=== PATIENT | male | born 1995 | race Caucasian/White ===

== ENCOUNTER 2016-10-03 18:40 | Emergency (ER) | payer BC ==
[2016-10-03 19:01] VITALS: BP 129/77
[2016-10-03 21:11] LABS: ACETAMINOPHEN 0 ug/mL (10-30)
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
[2016-10-03] MEDS ORDERED: Potassium Chloride 20 MEQ Tab.ER PO ONE (22:38)
[2016-10-04] MEDS ORDERED: Potassium Chloride 20 MEQ Tab.ER PO ONE (03:36)
== END 2016-10-04 08:30 ==
LOC: JD.ED 18:40
DX: R45.851 Suicidal ideations (principal); E87.6 Hypokalemia; F17.210 Nicotine dependence, cigarettes, uncomplicated
CPT/HCPCS: 36415; 80053; 80306; 84132; 84443; 85025; 93005; 99285; A9270; G0480

== ENCOUNTER 2016-10-13 20:00 | Emergency (ER) | payer BC ==
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
[2016-10-13 20:16] VITALS: BP 138/84
[2016-10-13] MEDS ORDERED: Ondansetron 4 MG/2 ML SDV IVPUSH ONE (20:24)
[2016-10-13] MEDS ORDERED: Lactated Ringers 1,000 ML IV SCH (20:30)
[2016-10-13] MEDS ORDERED: Iopamidol 612 MG/ML 150 ML Bottle IVPUSH ONE (20:44)
[2016-10-13] MEDS ORDERED: Sodium Chloride 0.9% 10 ML Syringe FLUSH ONE (20:44)
--- NOTE | 2016-10-13 21:16 | CT ---
Head CT Technique: Multiple axial sections through the brain were obtained. Intravenous contrast was utilized. Comparison: Previous head CT study of 11/03/14. Findings: Ventricles along with basal cisterns and sulci over the convexities appear within normal limits for the patient's age. No abnormal parenchymal densities are seen. No evidence of intracranial hemorrhage. No midline shift or mass effect is seen. Minimal area of mucosal thickening is seen within the left maxillary sinus which is incidental. No acute calvarial abnormality is appreciated. Impression: 1. Minimal sinus finding which is felt to be incidental. 2. No acute intracranial abnormality is identified on noncontrast head CT study. No significant change is seen from prior head CT exam. Diagnostic code #2
--- NOTE | 2016-10-13 21:20 | CT ---
CT cervical spine Technique: Multiple axial sections were obtained from above C1 inferiorly to the bottom of T1. Reconstructed sagittal and coronal images were reviewed. Comparison: Previous CT cervical spine exam of 03/13/16. Findings: Vertebral body heights and disc spaces are preserved. Minimal bony density is seen off the anterior and superior endplate of C6 which is stable from prior exam and is therefore incidental. Vertebral bodies and posterior arches are intact with no fracture being seen. No bony central bony neural foraminal stenosis is seen. Posterior skull base is intact. No abnormal subluxation is seen on the reconstructed sagittal images. Impression: 1. Incidental finding. Nothing acute is seen on CT study of the cervical spine. No significant change is seen from prior CT cervical spine exam. Diagnostic code #2
--- NOTE | 2016-10-13 21:26 | CT ---
CT chest Technique: Multiple axial sections were obtained through the chest. Intravenous contrast was utilized. Comparison: No previous previous noncontrast chest CT of 03/13/16. Findings: Mediastinum and hilar regions show no adenopathy or mass. Opacified great vessels are within normal limits. No pericardial thickening is seen. Lungs are clear. No pneumothorax, pleural effusion or abnormal parenchymal densities are seen. Bone window settings show no discrete rib fracture. Impression: 1. No abnormality identified on CT study of the chest. Diagnostic code #1 CT abdomen and pelvis Technique: Multiple axial sections were obtained from above the dome of the diaphragm inferiorly through the pubic symphysis. Intravenous contrast was utilized. No oral contrast was utilized. Comparison: No previous abdominal or pelvic CT exam is available. Findings: Liver shows no focal parenchymal abnormality. Spleen appears within normal limits. Adrenal glands show no nodule. Pancreas is within normal limits. Kidneys show symmetric contrast enhancement without hydronephrosis or mass. Aorta shows no aneurysmal dilatation. No retroperitoneal adenopathy or mesenteric abnormalities are seen. No pelvic mass or adenopathy is seen. Delayed images show contrast within the distal left ureter and bladder. Incidental extrarenal pelvis noted on the right side. Bone window settings were reviewed which show no discrete hip or pelvis abnormality. Impression: 1. No abnormality is identified on CT study of the abdomen and pelvis. Diagnostic code #1
--- NOTE | 2016-10-13 21:27 | CT ---
CT lumbar spine Technique: Multiple axial sections were obtained to the lumbar spine. Reconstructed coronal and sagittal images were reviewed. Findings: Vertebral body heights and disc spaces are maintained. No fracture is seen within the lumbar spine. No bony central or bony neural foraminal stenosis is seen. No traumatic disc herniation is seen. Mild disc space narrowing is incidentally noted at L5-S1 which is felt to be physiologic. No abnormal subluxation is seen on the reconstructed sagittal images. Impression: 1. No abnormality is identified on CT study of the lumbar spine. Diagnostic code #1
--- NOTE | 2016-10-13 21:29 | CT ---
CT thoracic spine Technique: Multiple axial sections through the thoracic spine were obtained. Reconstructed sagittal images were reviewed. Findings: Slight scoliosis is seen. Vertebral body heights and disc spaces are maintained. No fracture is identified. No bony central or bony neural foraminal stenosis is seen. No gross disc herniation is seen. No paravertebral soft tissue swelling is identified. Impression: 1. Minimal scoliosis. 2. Nothing acute is appreciated on CT study of the thoracic spine. Diagnostic code #2
[2016-10-13] MEDS ORDERED: Potassium Chloride 20 MEQ Tab.ER PO ONE (23:09)
== END 2016-10-13 23:50 | disposition home or self-care (01) ==
LOC: JD.ED 20:00
DX: S09.90XA Unspecified injury of head, initial encounter (principal); T14.8 Other injury of unspecified body region; F17.210 Nicotine dependence, cigarettes, uncomplicated; E87.6 Hypokalemia; V86.59XA Driver of other special all-terrain or other off-road motor vehicle injured in nontraffic accident, initial encounter
CPT/HCPCS: 36415; 70450; 71260; 72125; 72128; 72131; 74177; 80053; 80306; 81001; 83605; 83690; 85025; 86850; 86900; 86901; 93005; 96361; 96374; 99285; A9270; G0480; J2405; J7050; J7120; P9612; Q9967; 99284

== ENCOUNTER 2018-11-28 20:04 | Emergency (ER) | payer SELFPAY ==
[2018-11-28 20:14] VITALS: BP 137/92; PULSE 89
--- NOTE | 2018-11-28 22:17 | EDM.PDOC ---
ED HPI GENERAL MEDICAL PROBLEM - General Chief Complaint: ENT Problem Stated Complaint: SORES IN MOUTH Time Seen by Provider: 11/28/18 21:50 Source of Information: Reports: Patient History Limitations: Reports: No Limitations - History of Present Illness INITIAL COMMENTS - FREE TEXT/NARRATIVE: 23-year-old male presents for evaluation and treatment of mouth sores. Reports sores for the last few days. Have significantly worsened and he is unable to eat due to the pain. Reports pain all along the right-sided of the buccal mucosa. Reports his had something like this in the past but never anything this severe. Denies any fevers, chills, nausea or vomiting. Oral/Mouth Pain Score (Numeric/FACES): 7 - Related Data Allergies Allergy/AdvReac Type Severity Reaction Status Date / Time No Known Allergies Allergy Verified 10/13/16 20:12 Home Meds: Home Meds predniSONE [Prednisone] 20 mg PO BID #10 tablet 11/28/18 [Rx] Past Medical History - Past Health History Medical/Surgical History: Denies Medical/Surgical History HEENT History: Reports: None Cardiovascular History: Reports: None Respiratory History: Reports: None Gastrointestinal History: Reports: None Genitourinary History: Reports: None Musculoskeletal History: Reports: None Neurological History: Reports: Concussion Psychiatric History: Reports: ADHD, Addiction Endocrine/Metabolic History: Reports: None Hematologic History: Reports: None Immunologic History: Reports: None Oncologic (Cancer) History: Reports: None Dermatologic History: Reports: None - Infectious Disease History Infectious Disease History: Reports: None - Past Surgical History Head Surgeries/Procedures: Reports: None Social & Family History - Tobacco Use Smoking Status *Q: Current Every Day Smoker Years of Tobacco use: 9 Packs/Tins Daily: 0.5 - Caffeine Use Caffeine Use: Reports: Soda - Recreational Drug Use Recreational Drug Use: Yes Recreational Drug Type: Reports: Marijuana/Hashish - Living Situation & Occupation Living situation: Reports: Single, Other (Homeless) 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) ED ROS ENT - Review of Systems Review Of Systems: See Below Constitutional: Denies: Fever, Chills HEENT: Reports: Other (mouth sores) GI/Abdominal: Denies: Nausea, Vomiting ED EXAM, ENT - Physical Exam Exam: See Below Exam Limited By: No Limitations General Appearance: Alert, WD/WN, No Apparent Distress Ears: Normal External Exam, Normal Canal, Hearing Grossly Normal, Normal TMs Nose: Normal Inspection Mouth/Throat: Other (aphthous ulcers along the right buccal mucosa, large ulcer o the right lower lip and multiple smaller ulcers to the tongue) Respiratory/Chest: No Respiratory Distress, Lungs Clear, Normal Breath Sounds Cardiovascular: Normal Peripheral Pulses, Regular Rate, Rhythm, No Murmur Neurological: Alert, Oriented, Normal Cognition Psychiatric: Normal Affect, Normal Mood Skin: Warm, Dry, Normal Color Course - Vital Signs Last Recorded V/S: Last Vital Signs Temp 99.2 F 11/28/18 20:11 Pulse 89 11/28/18 20:11 Resp 16 11/28/18 20:11 BP 137/92 H 11/28/18 20:11 Pulse Ox 97 11/28/18 20:11 - Re-Assessments/Exams Free Text/Narrative Re-Assessment/Exam: 11/28/18 22:05 Will prescribe magic mouthwash for the ulcers and some prednisone. Discharge instructions as documented. Departure - Departure Time of Disposition: 22:14 Disposition: Home, Self-Care 01 Condition: Fair Clinical Impression: Aphthous stomatitis - Discharge Information *PRESCRIPTION DRUG MONITORING PROGRAM REVIEWED*: No *COPY OF PRESCRIPTION DRUG MONITORING REPORT IN PATIENT JOSÉ: No Prescriptions: predniSONE [Prednisone] 20 mg PO BID #10 tablet Instructions: Canker Sores Referrals: PCP,None [Primary Care Provider] - Forms: ED Department Discharge Additional Instructions: Follow-up with PCP in 2 weeks if not better. Prednisone 1 tab PO bid x 5 days, magic mouthwash 12 tsp swish and spit every 6 hours prn pain. OTC tylenol or motrin as needed for pain. Please return to the ER should your symptoms change or worsen.
== END 2018-11-28 22:20 | disposition home or self-care (01) ==
LOC: JD.ED 20:04
DX: K12.0 Recurrent oral aphthae (principal); F17.210 Nicotine dependence, cigarettes, uncomplicated
CPT/HCPCS: 99282

== ENCOUNTER 2020-12-15 14:50 | Emergency (ER) | payer SELFPAY ==
[2020-12-15 15:18] VITALS: BP 138/85; PULSE 109
--- NOTE | 2020-12-15 17:12 | EDM.PDOC ---
ED HPI GENERAL MEDICAL PROBLEM - General Chief Complaint: Respiratory Problem Stated Complaint: COVID+ Time Seen by Provider: 12/15/20 15:15 Source of Information: Reports: Patient, RN Notes Reviewed History Limitations: Reports: No Limitations - History of Present Illness INITIAL COMMENTS - FREE TEXT/NARRATIVE: Patient is a 25-year-old male presenting to the emergency department with complaints of a 2-day history of "sweating "and body aches. Reports mild cough but denies any shortness of breath.. Denies any nausea, vomiting, or diarrhea. He has not taken any [id number] medications for treatment of his symptoms. Patient did not receive the Covid vaccination. His girlfriend tested positive for Covid yesterday. Denies any chronic underlying medical conditions. Generalized Pain Score (Numeric/FACES): 6 - Related Data Allergies Allergy/AdvReac Type Severity Reaction Status Date / Time No Known Allergies Allergy Verified 12/15/20 15:17 Home Meds: Home Meds . [No Known Home Meds] 12/15/20 [History] Past Medical History - Past Health History Medical/Surgical History: Denies Medical/Surgical History HEENT History: Reports: None Cardiovascular History: Reports: None Respiratory History: Reports: None Gastrointestinal History: Reports: None Genitourinary History: Reports: None Musculoskeletal History: Reports: None Neurological History: Reports: Concussion Psychiatric History: Reports: ADHD, Addiction Endocrine/Metabolic History: Reports: None Hematologic History: Reports: None Immunologic History: Reports: None Oncologic (Cancer) History: Reports: None Dermatologic History: Reports: None - Infectious Disease History Infectious Disease History: Reports: None - Past Surgical History Dermatological Surgical History: Reports: Other (See Below) Social & Family History - Tobacco Use Tobacco Use Status *Q: Former Tobacco User Used Tobacco, but Quit: Yes Month/Year Tobacco Last Used: 07/30 - Caffeine Use Caffeine Use: Reports: Energy Drinks - Recreational Drug Use Recreational Drug Use: Yes Recreational Drug Type: Reports: Marijuana/Hashish - Living Situation & Occupation Living situation: Reports: Single, Other (Homeless) 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 ED EXAM, GENERAL - Physical Exam Exam: See Below Exam Limited By: No Limitations General Appearance: Alert, WD/WN, No Apparent Distress Respiratory/Chest: No Respiratory Distress, Lungs Clear, Normal Breath Sounds, No Accessory Muscle Use, Chest Non-Tender Cardiovascular: Normal Peripheral Pulses, Regular Rate, Rhythm, No Edema, No Gallop, No JVD, No Murmur, No Rub GI/Abdominal: Normal Bowel Sounds, Soft, Non-Tender, No Organomegaly, No Distention, No Abnormal Bruit, No Mass Neurological: Alert, Oriented, CN II-XII Intact, Normal Cognition, Normal Gait, Normal Reflexes, No Motor/Sensory Deficits Psychiatric: Normal Affect, Normal Mood Skin Exam: Warm, Dry, Intact, Normal Color, No Rash Course - Vital Signs Last Recorded V/S: Last Vital Signs Temp 97.6 F 12/15/20 15:15 Pulse 109 H 12/15/20 15:15 Resp 18 12/15/20 15:15 BP 138/85 12/15/20 15:15 Pulse Ox 99 12/15/20 15:15 - Orders/Labs/Meds Labs: Laboratory Tests 12/15/20 Range/Units 15:18 SARS-CoV-2 RNA ([facility]) Positive H (NEGATIVE) - Re-Assessments/Exams Free Text/Narrative Re-Assessment/Exam: Patient is a 25-year-old male presenting to the emergency department with complaints of "sweats "and body aches as well as a mild cough. Has had known exposure to Covid and is not vaccinated. Exam is unremarkable. Oxygen 99% on room air. He is afebrile. Lung sounds are clear. I have ordered Covid test. 12/15/20 17:10 Covid test returned positive. Discussed symptomatic treatment as well as quarantine. Discussed return precautions. Discharge instructions as documented. Departure - Departure Time of Disposition: 17:10 Disposition: Home, Self-Care 01 Condition: Good Clinical Impression: COVID-19 - Discharge Information *PRESCRIPTION DRUG MONITORING PROGRAM REVIEWED*: No *COPY OF PRESCRIPTION DRUG MONITORING REPORT IN PATIENT JOSÉ: No Instructions: COVID-19 Referrals: PCP,None [Primary Care Provider] - Additional Instructions: You were seen in the emergency department today for cough, body aches and sweats. Covid testing was completed and you are found to be Covid positive. Recommend that you go home and rest. Use Tylenol and ibuprofen for fever or lupillo dy aches. Ensure that you are taking an adequate amount of fluid. Follow the guidelines the [facility] for quarantine. Return to ER for any new or worsening symptoms of concern. Sepsis Event Note (ED) - Evaluation Sepsis Screening Result: No Definite Risk - Focused Exam Vital Signs: Vital Signs Temp Pulse Resp BP Pulse Ox 12/15/20 15:15 97.6 F 109 H 18 138/85 99
== END 2020-12-15 17:30 | disposition home or self-care (01) ==
LOC: JD.ED 14:50
DX: U07.1 COVID-19 (principal); Z87.891 Personal history of nicotine dependence
CPT/HCPCS: 99283; U0002

== ENCOUNTER 2020-12-16 13:54 | Emergency (ER) | payer SELFPAY ==
[2020-12-16] MEDS ORDERED: Ketorolac 30 MG/ML SDV IM ONE (14:16)
--- NOTE | 2020-12-16 14:18 | EDM.PDOC ---
ED HPI GENERAL MEDICAL PROBLEM - General Chief Complaint: Respiratory Problem Stated Complaint: COVID +/SOB Time Seen by Provider: 12/16/20 14:09 Source of Information: Reports: Patient, RN Notes Reviewed History Limitations: Reports: No Limitations - History of Present Illness INITIAL COMMENTS - FREE TEXT/NARRATIVE: Patient is a 25-year-old male who presents to the ER for evaluation of his COVID-19 symptoms. Patient was evaluated in this ER yesterday, and was found to be Covid positive. States that this is about a 3 or 4 that he has been feeling ill. His girlfriend is home sick as well. States that he is unvaccinated. He has been having body sweats, and all over body aches. States he has been taking Tylenol and ibuprofen every 6 hours and nothing seems to really be helping. He does have a dry intermittent cough on exam. Patient's vitals are stable and his O2 sats are 100% on room air. He is in no visible respiratory distress whatsoever. No primary care provider. Denies any past medical history. Generalized Pain Score (Numeric/FACES): 10 - Related Data Allergies Allergy/AdvReac Type Severity Reaction Status Date / Time No Known Allergies Allergy Verified 12/16/20 14:06 Home Meds: Home Meds Codeine/Promethazine [Phenergan with Codeine] 5 ml PO Q4HR PRN #120 ml 12/16/20 [Rx] Past Medical History Neurological History: Reports: Concussion Psychiatric History: Reports: ADHD, Addiction Endocrine/Metabolic History: Reports: Obesity/BMI 30+ - Infectious Disease History Infectious Disease History: Reports: Novel Coronavirus (12/2020) Social & Family History - Tobacco Use Tobacco Use Status *Q: Never Tobacco User - Caffeine Use Caffeine Use: Reports: Energy Drinks - Recreational Drug Use Recreational Drug Use: Yes Recreational Drug Type: Reports: Marijuana/Hashish - Living Situation & Occupation Living situation: Reports: Single, Other (Homeless) 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 ED EXAM, GENERAL - Physical Exam Exam: See Below Exam Limited By: No Limitations General Appearance: Alert, WD/WN, No Apparent Distress Respiratory/Chest: No Respiratory Distress, Lungs Clear, Normal Breath Sounds, No Accessory Muscle Use, Chest Non-Tender Cardiovascular: Normal Peripheral Pulses, Regular Rate, Rhythm, No Edema Peripheral Pulses: 2+: Radial (R), Femoral (L) GI/Abdominal: Normal Bowel Sounds, Soft, Non-Tender, No Distention, No Mass Extremities: Normal Inspection, Normal Capillary Refill Neurological: Alert, Oriented, Normal Cognition, No Motor/Sensory Deficits Psychiatric: Normal Affect, Normal Mood Skin Exam: Warm, Dry, Intact, Normal Color, No Rash Course - Vital Signs Last Recorded V/S: Last Vital Signs Temp 97.1 F 12/16/20 14:04 Pulse 92 12/16/20 14:04 Resp 24 H 12/16/20 14:04 BP 147/102 H 12/16/20 14:04 Pulse Ox 100 12/16/20 14:04 - Orders/Labs/Meds Orders: Active Orders 24 hr Category Date Time Status Ketorolac [Toradol] Med 12/16/20 14:16 Once 30 mg IM ONETIME ONE - Re-Assessments/Exams Free Text/Narrative Re-Assessment/Exam: 12/16/20 14:21 Patient is a 25-year-old male who presents to the ER for the evaluation of his Covid symptoms. We will go ahead and give him some IM Toradol for pain management, and prescribe him some cough medications for outpatient basis and discharge him home. I did let him know that he will likely feel quite under the weather for some time but he should get better. Departure - Departure Time of Disposition: 14:22 Disposition: Home, Self-Care 01 Condition: Good Clinical Impression: COVID-19 - Discharge Information *PRESCRIPTION DRUG MONITORING PROGRAM REVIEWED*: No *COPY OF PRESCRIPTION DRUG MONITORING REPORT IN PATIENT JOSÉ: No Prescriptions: Codeine/Promethazine [Phenergan with Codeine] 5 ml PO Q4HR PRN #120 ml PRN Reason: Cough Instructions: COVID-19 Frequently Asked Questions, 10 Things You Can Do to Manage Your COVID-19 Symptoms at Home - [facility] (09/24/2020) Referrals: PCP,None [Primary Care Provider] - Forms: ED Department Discharge Additional Instructions: You were seen in the ER today for ongoing and/or worsening COVID-19 symptoms. Your oxygen levels were great at the 8-100% on room air. Please try to increase your oral fluid intake, and eat multiple small meals throughout the day, to keep yourself healthy. You need to keep yourself nourished in order to fight off this disease. You can try a liquid diet like gatorade/powerade as well to get your electrolytes. You may take 500 mg Tylenol or 600 mg ibuprofen every hours 6 hours for pain/fever relief. Do not exceed 4000 mg Tylenol or 3200 mg ibuprofen in a 24- hour time span. However, running a fever is your body's natural response to illness, and it allows the body to develop antibodies to disease, we are recommending trying to limit the use of Tylenol as much as possible to allow your body's natural immune response. You were prescribed a strong cough medication to help relieve some of your cough and hopefully allow you to get some rest at night. Please take as prescribed. This medication was electronically sent to the [facility] located near [facility]. Recommend you obtain a pulse oximeter and monitor your oxygen levels at home, you should place the monitor on your finger, and sit in a calm, quiet position for a few minutes and then record the number that is on the screen. If this consistently below 90% on room air without movement, this would be cause for concern to come back to the hospital for further management of your COVID-19 disease. Please follow all guidance set forth from [facility], regarding isolation purposes for your disease process. General isolation times are 10 days from when you started being symptomatic. Sepsis Event Note (ED) - Evaluation Sepsis Screening Result: Possible Sepsis Risk - Focused Exam Vital Signs: Vital Signs Temp Pulse Resp BP Pulse Ox 12/16/20 14:04 97.1 F 92 24 H 147/102 H 100 - My Orders Last 24 Hours: My Active Orders 12/16/20 14:16 Ketorolac [Toradol] 30 mg IM ONETIME ONE - Assessment/Plan Last 24 Hours: My Active Orders 12/16/20 14:16 Ketorolac [Toradol] 30 mg IM ONETIME ONE
[2020-12-16 15:52] VITALS: BP 129/87; PULSE 84
== END 2020-12-16 14:50 | disposition home or self-care (01) ==
LOC: JD.ED 13:54
DX: U07.1 COVID-19 (principal); E66.9 Obesity, unspecified; Z68.30 Body mass index [BMI] 30.0-30.9, adult
CPT/HCPCS: 96372; 99283

== ENCOUNTER 2021-03-25 20:56 | Emergency (ER) | payer SELFPAY ==
[2021-03-25 21:06] VITALS: BP 164/79; PULSE 88
[2021-03-25] MEDS ORDERED: methylPREDNISolone Sodium Succinate 125 MG/2 ML SDV IVPUSH ONE (21:24)
[2021-03-25] MEDS ORDERED: diphenhydrAMINE 50 MG/ML SDV IVPUSH ONE (21:24)
[2021-03-25] MEDS ORDERED: Famotidine 20 MG/2 ML SDV IVPUSH ONE (21:25)
== END 2021-03-26 00:16 ==
LOC: JD.ED 20:56
DX: T78.2XXA Anaphylactic shock, unspecified, initial encounter (principal); T40.2X1A Poisoning by other opioids, accidental (unintentional), initial encounter; E66.9 Obesity, unspecified; Z68.30 Body mass index [BMI] 30.0-30.9, adult
CPT/HCPCS: 93005; 96374; 96375; 99284; J1200; J2930; J3490; 99283

== ENCOUNTER 2024-09-17 09:39 | Emergency (ER) | payer SELFPAY ==
[2024-09-17 10:36] VITALS: BP 163/65; PULSE 78
== END 2024-09-17 11:11 | disposition home or self-care (01) ==
LOC: JD.ED 09:39
DX: M94.0 Chondrocostal junction syndrome [Tietze] (principal); R07.89 Other chest pain; Z86.16 Personal history of COVID-19
CPT/HCPCS: 71045; 71045-26; 93005; 99285